=== PATIENT | female | born 1990 | race Caucasian/White ===

== ENCOUNTER 2017-05-28 08:06 | Inpatient (IN) | payer OTHER ==
[~2017-05-28] VITALS: Ht 172.7 cm; Wt 101.0 kg
[2017-05-28] VITALS (24 sets, daily range): BP systolic 103–131; BP diastolic 53–74
[~2017-05-28 08:06] MED LIST: KEFLEX500 MG PO; no home med
[2017-05-28] MEDS ORDERED: PRENATAL TABLE1 EAC3 PO (09:18)
[2017-05-28 10:39] LABS: EOSINOPHIL (%) 1.1 % (0-5); EOSINOPHIL COUNT 0.1 K/uL (0-0.3); HEMATOCRIT 32.2 % (36.0-46.0); IMMATURE GRANULOCYTE (%) 1.3 % (0.0-0.7); IMMATURE GRANULOCYTE COUNT 0.1 K/uL; INSTRUMENT ABS NEUTROPHIL CT 6.6 K/uL; LYMPHOCYTE COUNT 1.6 K/uL (1.0-2.8); MCH 31.4 PG (29.0-34.0); MCHC 34.2 G/DL (30.0-36.0); MEAN PLAT.VOLUME 11.1 uM^3 (9.5-12.4); MONOCYTE (%) 7.3 % (3-12); MONOCYTE COUNT 0.7 K/uL (0-0.8); NEUTROPHIL (%) 72.7 % (45-76); NEUTROPHIL COUNT 6.6 K/uL (1.8-6.4); PLATELET COUNT 263 K/uL (156-360); RBC DIS.WIDTH-SD 46.1 % (39-53); WHITE BLOOD COUNT 9.1 K/uL (4.1-10.2)
[2017-05-29] VITALS (18 sets, daily range): BP systolic 99–125; BP diastolic 51–66
[2017-05-30 08:08] LABS: EOSINOPHIL (%) 0.5 % (0-5); EOSINOPHIL COUNT 0.1 K/uL (0-0.3); HEMATOCRIT 25.4 % (36.0-46.0); IMMATURE GRANULOCYTE (%) 0.6 % (0.0-0.7); IMMATURE GRANULOCYTE COUNT 0.1 K/uL; INSTRUMENT ABS NEUTROPHIL CT 12.7 K/uL; MCH 30.3 PG (29.0-34.0); MCHC 33.1 G/DL (30.0-36.0); MCV 91.7 FL (83-99); MEAN PLAT.VOLUME 11.3 uM^3 (9.5-12.4); MONOCYTE (%) 6.6 % (3-12); MONOCYTE COUNT 1.1 K/uL (0-0.8); NEUTROPHIL (%) 79.8 % (45-76); NEUTROPHIL COUNT 12.7 K/uL (1.8-6.4); PLATELET COUNT 208 K/uL (156-360); RBC DIS.WIDTH-SD 47.4 % (39-53)
[2017-05-30 08:10] LABS: RED BLOOD COUNT 2.77 M/uL (3.80-5.20)
[2017-05-30 23:21] VITALS: BP 127/64
[2017-05-31 02:33] VITALS: BP 124/72
[2017-05-31 07:54] VITALS: BP 118/65
[2017-05-31 10:48] VITALS: BP 123/70
[2017-05-31 14:58] VITALS: BP 136/79
[2017-05-31 22:11] VITALS: BP 140/74
[2017-06-01 07:27] VITALS: BP 97/56
[2017-06-01] MEDS ORDERED: IBUPROFEN800 MG PO (13:13)
[2017-06-01] MEDS ORDERED: ENDOCET 5-3251 EACH PO (13:13)
[2017-06-01] MEDS ORDERED: FERROUS SULFAT325 MG PO (13:13)
[2017-06-01 14:37] VITALS: BP 124/67
== END 2017-06-01 18:45 | disposition home or self-care (01) | DRG 765 ==
LOC: LDRP-OP → 2WEST 08:07 → LDRP-OP 20:38 → 2WEST 05-29 11:16 → LDRP-OP 06-17 13:17
PROVIDERS: Advanced Practice Midwife; Obstetrics & Gynecology
DX: O66.2 Obstructed labor due to unusually large fetus (principal); O62.0 Primary inadequate contractions; O62.1 Secondary uterine inertia; O76 Abnormality in fetal heart rate and rhythm complicating labor and delivery; O75.2 Pyrexia during labor, not elsewhere classified; O69.81X0 Labor and delivery complicated by cord around neck, without compression, not applicable or unspecified; O99.824 Streptococcus B carrier state complicating childbirth; O99.02 Anemia complicating childbirth; D62 Acute posthemorrhagic anemia; D50.9 Iron deficiency anemia, unspecified; O48.0 Post-term pregnancy; Z3A.41 41 weeks gestation of pregnancy; Z37.0 Single live birth; O99.613 Diseases of the digestive system complicating pregnancy, third trimester; K21.9 Gastro-esophageal reflux disease without esophagitis; Z87.891 Personal history of nicotine dependence
CPT/HCPCS: 85025; 86850; 86900; 86901; 88307; C1755; G0378; J0290; J0690; J1170; J2175; J2274; J2405; J2590; J3010; J7050; J7120